=== PATIENT | male | born 1945 | race Caucasian/White ===

== ENCOUNTER → 2024-06-28 06:29 | Day surgery (SDC) | payer OTHER, SELFPAY | LOC: GI 06:29 | PROVIDERS: ATTENDING PHYSICIAN Surgery | DX: Z12.11 Encounter for screening for malignant neoplasm of colon (principal); Z86.010 Personal history of colon polyps; K57.30 Diverticulosis of large intestine without perforation or abscess without bleeding; D12.2 Benign neoplasm of ascending colon | CPT/HCPCS: 45385; 88305 ==

== ENCOUNTER → 2024-08-10 15:40 | Outpatient (REF) | payer OTHER, SELFPAY | LOC: RCS 15:40 | PROVIDERS: ATTENDING PHYSICIAN Internal Medicine Cardiovascular Disease; FAMILY PHYSICIAN Family Medicine | DX: I45.10 Unspecified right bundle-branch block (principal); R00.0 Tachycardia, unspecified | CPT/HCPCS: 93306 ==